=== PATIENT | male | born 1985 | race African-American/Black ===

== ENCOUNTER 2024-02-15 16:09 | Emergency (ER) | payer OTHER, SELFPAY ==
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
[2024-02-15 16:23] VITALS: BP 155/111; PULSE 101; RESP 20; TEMP 36.3; O2SAT 96
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
== END 2024-02-15 18:53 | disposition home or self-care (01) ==
LOC: ANHED 18:03
PROVIDERS: Emergency Provider Nurse Practitioner Family
DX: S63.502A Unspecified sprain of left wrist, initial encounter (principal); S46.912A Strain of unspecified muscle, fascia and tendon at shoulder and upper arm level, left arm, initial encounter; V89.2XXA Person injured in unspecified motor-vehicle accident, traffic, initial encounter; S56.912A Strain of unspecified muscles, fascia and tendons at forearm level, left arm, initial encounter; S66.912A Strain of unspecified muscle, fascia and tendon at wrist and hand level, left hand, initial encounter; W22.11XA Striking against or struck by driver side automobile airbag, initial encounter
CPT/HCPCS: 72125; 73030; 73080; 73110; 73130; 99284

== ENCOUNTER 2025-06-18 14:27 | Emergency (ER) | payer OTHER, SELFPAY ==
[2025-06-18 14:39] VITALS: BP 139/100; PULSE 58; RESP 20; TEMP 36.6; O2SAT 99
--- NOTE | 2025-06-18 15:29 | ED_ITS ---
HPI - Abdominal Pain General Chief Complaint: Abdominal Pain Stated Complaint: Stomach Pain/Diarrhea Time Seen by Provider: 06/18/25 15:30 Source: patient, RN notes reviewed and old records reviewed Mode of arrival: ambulatory Limitations: no limitations History of Present Illness HPI narrative: 40-year-old male presents to the [facility] with complaints of feeling bloated on Wednesday, stomach cramping when he has diarrhea which he reports is frequent since Wednesday, 2 days. Reports started take Pepto-Bismol Patient states that he can take water in but states it feels like it comes out the other end. Onset (ago): day(s) (2) Related Data Home Medications ?Medication ?Instructions ?Recorded ?Confirmed ?Last Taken ?Type metoprolol tartrate 50 mg tablet 50 mg PO DAILY 06/18/25 06/18/25 Unknown History sildenafil 100 mg tablet 100 mg PO Q24H PRN sexual activiy 06/18/25 06/18/25 Unknown History Allergies Allergy/AdvReac Type Severity Reaction Status Date / Time No Known Allergies Allergy Verified 06/18/25 14:52 Review of Systems Review of Systems: All systems reviewed & are unremarkable except as noted in HPI and below Constitutional: Constitutional: Reports no additional constitutional complaints ENT: Reports system reviewed and no additional complaints, except as documented Cardiovascular: Cardiovascular: Reports no additional cardiovascular complaints, Denies chest pain and Denies dyspnea Respiratory: Respiratory: Reports no additional respiratory complaints, Denies chest congestion, Denies cough and Denies dyspnea Gastrointestinal: Gastrointestinal: Reports as per HPI, Reports abdominal pain, Reports diarrhea, Denies nausea and Denies vomiting Musculoskeletal: Musculoskeletal: Reports no additional musculoskeletal complaints Integumentary/Breasts: Skin/Breast: Reports system reviewed and no additional complaints, except as docu PMFSH Surgical History Surgical History (Updated 06/18/25 @ 20:08 by Yesica Reynolds APRN) H/O gastric sleeve Comments At the time of my signature, I reviewed and agree with the nursing past medical, surgical, social, and family history. There is no relevant family history pertinent to the patient complaint. Exam Const: General: cooperative, healthy appearing, comfortable, no acute distress, well developed, alert and well nourished Nutritional Appearance: well nourished and obese Orientation/consciousness: patient oriented x3 Limitations: no limitations HENMT: Head: normal to inspection Eyes: General: appearance normal, both eyes and all related structures Alignment and Position: alignment normal Neck: Neck: normal visual inspection, full ROM, no lymphadenopathy and no meningeal signs Chest: Chest palpation & inspection: normal inspection of the chest Resp: Effort & Inspection: normal respiratory effort and able to speak in complete sentences Auscultation: clear to auscultation bilaterally, no crackles, no rales, no rhonchi and no wheezes Cardio: Rate: regular rate GI: GI Palp: No abdominal tenderness and Yes Soft to palpation Auscultation: normal bowel sounds Skin: General skin exam: normal color and no rashes or lesions noted Neuro: General: patient oriented x3, gait normal, moves all extremities and no meningeal signs Cognition (Neuro): normal cognition Speech: normal speech Gait exam (Neuro): Normal gait present Extrem: General: normal to inspection, full ROM, capillary refill normal and normal gait Psych: Appearance: grossly normal and well kempt Mental Status: mental status grossly normal Speech and movement: Normal speech and movement present and Clear speech present Affect: normal affect Attitude: cooperative Course Course Level of Care: Express Care Visit Vital Signs Vital signs: Vital Signs Temperature 97.9 F 06/18/25 14:39 Pulse Rate 58 L 06/18/25 14:39 Respiratory Rate 20 06/18/25 14:39 Blood Pressure 139/100 H 06/18/25 14:39 Pulse Oximetry 99 06/18/25 14:39 Oxygen Delivery Room Air 06/18/25 14:39 Temperature 97.9 F 06/18/25 14:39 Pulse Rate 58 L 06/18/25 14:39 Respiratory Rate 20 06/18/25 14:39 Blood Pressure 139/100 H 06/18/25 14:39 Pulse Oximetry 99 06/18/25 14:39 Oxygen Delivery Room Air 06/18/25 14:39 Reviewed MDM - Abdominal Pain MDM Narrative Medical decision making narrative: Patient sitting in exam room. Patient is nontoxic, vitals are stable except blood pressure elevated. Patient does get treated for blood pressure issues. Patient with a history of a gastric sleeve presents with diarrhea. Patient denies any pain. Reports he does have cramping when he has diarrhea. Discussed transferring to the ER for further evaluation, patient is declining at this time. Discussed that we do not treat dehydration, cannot perform IV fluids or do blood test. Discussed concerns for electrolyte disturbance, complications due to gastric sleeve which patient verbalized understanding, will follow up with primary care provider per patient. Discussed strict signs and symptoms to proceed to the emergency room which patient verbalized understanding Discharge instructions reviewed with patient, as well as provided in writing per nursing staff. The instructions also include specific and strict return/GO TO THE ER as well as f/u information. All questions have been answered, and the patient deny any further questions with discharge and discharge plan. Some parts of this dictation were generated by voice recognition software and may contain typographical and/or grammatical inaccuracies. Differential Diagnosis Differential diagnosis: Likely abdominal pain, endometriosis, gastroenteritis, small bowel obstruction and other Critical Care Time Critical Care Time Critical Care Time: No Discharge Plan Discharge Clinical Impression: Gastroenteritis, Acute diarrhea Patient Disposition: Home Condition: Stable Instructions: Acute Diarrhea (ED) Additional Instructions: Keep your diet very simple. Nothing fried, greasy, spicy or highly process. Keeping hydrated with water, Gatorade, Pedialyte, ice pops in Jell-O is a very important. Avoiding things such as caffeinated or carbonated beverages Take Imodium as needed per package instructions If your symptoms continue or get worse please proceed to the nearest emergency room Patient Language: Peruvian Prescriptions: No Action metoprolol tartrate 50 mg tablet 50 mg PO DAILY sildenafil 100 mg tablet 100 mg PO Q24H PRN (Reason: sexual activiy) naproxen 500 mg tablet 500 mg PO BID PRN (Reason: pain) 7 Days Qty: 14 0RF Follow-up/Referrals: PHYSICIAN,SECURITY VEHICLE PATROL OFFICER [Primary Care Provider] - Stand Alone Forms: Work/School Release IP Time of Disposition: 15:37
== END 2025-06-18 15:40 | disposition home or self-care (01) ==
PROVIDERS: Emergency Provider Nurse Practitioner
DX: R19.7 Diarrhea, unspecified (principal); Z98.84 Bariatric surgery status
CPT/HCPCS: 99211; G0463